=== PATIENT | female | born 1985 | race African-American/Black ===

== ENCOUNTER 2016-10-23 20:49 | Emergency (ER) | payer SELFPAY ==
[2016-10-23] MEDS ORDERED: NS 0.9% 1000 ML* 1,000 ML IV ONE (22:26)
[2016-10-23] MEDS ORDERED: Ondansetron INJ* 2 MG/ML VIAL IV ONE (22:26)
[2016-10-23] MEDS ORDERED: Morphine INJ* 2 MG/ML 1 ML SYRINGE IV ONE (22:26)
[2016-10-23 22:34] LABS: Urine Bilirubin Negative (Negative); Urine Glucose Negative (Negative); Urine Nitrite Negative (Negative)
[2016-10-23 22:43] LABS: Hematocrit 40 % (35-47); Hemoglobin 13.2 g/dl (12.0-16.0); Mean Corpuscular HGB Conc 33 g/dl (31-36); Mean Corpuscular Hemoglobin 30 pg (27-31); Mean Corpuscular Volume 91 fL (80-97); Mean Platelet Volume 8 um3 (7.4-10.4); Red Blood Count 4.38 10^6/ul (4.0-5.4); Red Cell Distribution Width 14 % (10.5-15); White Blood Count 10.6 10^3/ul (3.5-10.8)
[2016-10-23 22:59] LABS: ALT 19 U/L (7-52); AST 17 U/L (13-39); Albumin 4.4 g/dL (3.2-5.2); Alkaline Phosphatase 64 U/L (34-104); Anion Gap 7 mmol/L (2-11); BUN/Creatinine Ratio 11.6 (8-20); Blood Urea Nitrogen 10 mg/dL (6-24); C Reactive Protein 5.63 mg/L (< 5.00); CO2 Carbon Dioxide 28 mmol/L (22-32); Calcium 9.2 mg/dL (8.6-10.3); Chloride 102 mmol/L (101-111); EGFR African American 98.3 (>60); EGFR Non-African American 76.5 (>60); Globulin 3.2 g/dL (2-4); Glucose 97 mg/dL (70-100); Lipase 26 U/L (11.0-82.0); Magnesium 1.7 mg/dL (1.9-2.7); Potassium 3.7 mmol/L (3.5-5.0); Sodium 137 mmol/L (133-145); Total Protein 7.6 g/dL (6.4-8.9)
[2016-10-24] MEDS ORDERED: Morphine INJ* 2 MG/ML 1 ML SYRINGE ONE (00:02)
[2016-10-24] MEDS ORDERED: Morphine INJ* 2 MG/ML 1 ML SYRINGE IV ONE (00:03)
--- NOTE | 2016-10-24 00:03 | ED ---
allen Rondon Timothy, scribed for Douglas Mccall MD on 10/23/16 at 2229 . Abdominal Pain/Female - HPI Summary HPI Summary: Oneida Mendoza is a 31 yo female presenting to [facility] with constant 10/ 10 lower abd pain with nausea and lightheadedness since 1500 today. she states she was at rest when the pain started. She denies V/D, dysuria, and fever. she has self-medicated with tylenol. Her MHx includes ectopic and C- section. - History of Current Complaint Chief Complaint: EDAbdPain Stated Complaint: LOWER ABD PAIN Time Seen by Provider: 10/23/16 22:23 Hx Obtained From: Patient Onset/Duration: Sudden Onset, Lasting Hours, Still Present Timing: Constant Severity Initially: Moderate Severity Currently: Moderate Pain Intensity: 10 Pain Scale Used: 0-10 Numeric Location: Discrete At: RLQ, Discrete At: LLQ Radiates: No Associated Signs and Symptoms: Positive: Nausea. Negative: Fever, Urinary Symptoms, Vomiting Allergies/Adverse Reactions: Allergies Allergy/AdvReac Type Severity Reaction Status Date / Time No Known Allergies Allergy Verified 10/23/16 20:55 PMH/Surg Hx/FS Hx/Imm Hx - Surgical History Surgery Procedure, Year, and Place: Infectious Disease History: Denies: Traveled Outside the [place] in Last 30 Days - Family History Known Family History: Positive: Diabetes Negative: Cardiac Disease - Social History Occupation: Employed Full-time Lives: With Family Alcohol Use: Rare Hx Substance Use: No Hx Tobacco Use: No Smoking Status (MU): Never Smoked Tobacco - Additional Comments History Additional Comments: ectopic Review of Systems Constitutional: Negative Negative: Fever Eyes: Negative ENT: Negative Cardiovascular: Negative Respiratory: Negative Positive: Abdominal Pain, Nausea. Negative: Vomiting Genitourinary: Negative Positive: no symptoms reported Musculoskeletal: Negative Skin: Negative Neurological: Other - lightheadedness Psychological: Normal All Other Systems Reviewed And Are Negative: Yes Physical Exam Triage Information Reviewed: Yes Vital Signs On Initial Exam: Initial Vitals Temp Pulse Resp BP Pulse Ox 97.7 F 93 16 146/97 100 10/23/16 20:50 10/23/16 20:50 10/23/16 20:50 10/23/16 20:50 10/23/16 20:50 Vital Signs Reviewed: Yes Appearance: Positive: Well-Appearing, Pain Distress - mild discomfort Skin: Positive: Warm Head/Face: Positive: Normal Head/Face Inspection Eyes: Positive: NACHO ENT: Positive: Hearing grossly normal Respiratory/Lung Sounds: Positive: Breath Sounds Present Cardiovascular: Positive: RRR Abdomen Description: Positive: Soft - mild diffuse lower abd tenderness. Negative: Distended, Guarding Bowel Sounds: Positive: Present Musculoskeletal: Positive: Strength/ROM Intact Neurological: Positive: Alert, Oriented to Person Place, Time Diagnostics - Vital Signs Vital Signs Temp Pulse Resp BP Pulse Ox 10/23/16 20:50 97.7 F 93 16 146/97 100 - Laboratory Lab Results: Lab Results 10/23/16 10/23/16 10/23/16 Range/Units 21:10 22:35 22:35 WBC 10.6 (3.5-10.8) 10^3/ul RBC 4.38 (4.0-5.4) 10^6/ul Hgb 13.2 (12.0-16.0) g/dl Hct 40 (35-47) % MCV 91 (80-97) fL MCH 30 (27-31) pg MCHC 33 (31-36) g/dl RDW 14 (10.5-15) % Plt Count 228 (150-450) 10^3/ul MPV 8 (7.4-10.4) um3 Neut % (Auto) 83.8 H (38-83) % Lymph % (Auto) 10.6 L (25-47) % Ev[place]eline % (Auto) 5.2 (1-9) % Eos % (Auto) 0.2 (0-6) % Baso % (Auto) 0.2 (0-2) % Absolute Neuts (auto) 8.8 H (1.5-7.7) 10^3/ul Absolute Lymphs (auto) 1.1 (1.0-4.8) 10^3/ul Absolute Monos (auto) 0.5 (0-0.8) 10^3/ul Absolute Eos (auto) 0 (0-0.6) 10^3/ul Absolute Basos (auto) 0 (0-0.2) 10^3/ul Absolute Nucleated RBC 0.01 10^3/ul Nucleated RBC % 0.1 Sodium 137 (133-145) mmol/L Potassium 3.7 (3.5-5.0) mmol/L Chloride 102 (101-111) mmol/L Carbon Dioxide 28 (22-32) mmol/L Anion Gap 7 (2-11) mmol/L BUN 10 (6-24) mg/dL Creatinine 0.86 (0.51-0.95) mg/dL Est GFR ( Amer) 98.3 (>60) Est GFR (Non-Af Amer) 76.5 (>60) BUN/Creatinine Ratio 11.6 (8-20) Glucose 97 (70-100) mg/dL Lactic Acid (0.5-2.0) mmol/L Calcium 9.2 (8.6-10.3) mg/dL Magnesium 1.7 L (1.9-2.7) mg/dL Total Bilirubin 0.70 (0.2-1.0) mg/dL AST 17 (13-39) U/L ALT 19 (7-52) U/L Alkaline Phosphatase 64 (34-104) U/L C-Reactive Protein 5.63 H (< 5.00) mg/L Total Protein 7.6 (6.4-8.9) g/dL Albumin 4.4 (3.2-5.2) g/dL Globulin 3.2 (2-4) g/dL Albumin/Globulin Ratio 1.4 (1-3) Lipase 26 (11.0-82.0) U/L Beta HCG, Quant < 0.60 mIU/mL Urine Color Straw Urine Appearance Clear Urine pH 8.0 (5-9) Ur Specific [place] 1.008 L (1.010-1.030) Urine Protein Negative (Negative) Urine Ketones Negative (Negative) Urine Blood Negative (Negative) Urine Nitrate Negative (Negative) Urine Bilirubin Negative (Negative) Urine Urobilinogen Negative (Negative) Ur Leukocyte Esterase Negative (Negative) Urine Glucose Negative (Negative) 10/23/16 Range/Units 22:35 WBC (3.5-10.8) 10^3/ul RBC (4.0-5.4) 10^6/ul Hgb (12.0-16.0) g/dl Hct (35-47) % MCV (80-97) fL MCH (27-31) pg MCHC (31-36) g/dl RDW (10.5-15) % Plt Count (150-450) 10^3/ul MPV (7.4-10.4) um3 Neut % (Auto) (38-83) % Lymph % (Auto) (25-47) % Evangeline % (Auto) (1-9) % Eos % (Auto) (0-6) % Baso % (Auto) (0-2) % Absolute Neuts (auto) (1.5-7.7) 10^3/ul Absolute Lymphs (auto) (1.0-4.8) 10^3/ul Absolute Monos (auto) (0-0.8) 10^3/ul Absolute Eos (auto) (0-0.6) 10^3/ul Absolute Basos (auto) (0-0.2) 10^3/ul Absolute Nucleated RBC 10^3/ul Nucleated RBC % Sodium (133-145) mmol/L Potassium (3.5-5.0) mmol/L Chloride (101-111) mmol/L Carbon Dioxide (22-32) mmol/L Anion Gap (2-11) mmol/L BUN (6-24) mg/dL Creatinine (0.51-0.95) mg/dL Est GFR ( Amer) (>60) Est GFR (Non-Af Amer) (>60) BUN/Creatinine Ratio (8-20) Glucose (70-100) mg/dL Lactic Acid 1.1 (0.5-2.0) mmol/L Calcium (8.6-10.3) mg/dL Magnesium (1.9-2.7) mg/dL Total Bilirubin (0.2-1.0) mg/dL AST (13-39) U/L ALT (7-52) U/L Alkaline Phosphatase (34-104) U/L C-Reactive Protein (< 5.00) mg/L Total Protein (6.4-8.9) g/dL Albumin (3.2-5.2) g/dL Globulin (2-4) g/dL Albumin/Globulin Ratio (1-3) Lipase (11.0-82.0) U/L Beta HCG, Quant mIU/mL Urine Color Urine Appearance Urine pH (5-9) Ur Specific [place] (1.010-1.030) Urine Protein (Negative) Urine Ketones (Negative) Urine Blood (Negative) Urine Nitrate (Negative) Urine Bilirubin (Negative) Urine Urobilinogen (Negative) Ur Leukocyte Esterase (Negative) Urine Glucose (Negative) Result Diagrams: 10/23/16 22:35 10/23/16 22:35 Lab Statement: Any lab studies that have been ordered have been reviewed, and results considered in the medical decision making process. - CT A/P CT Interpretation: Positive (See Comments) - 4cm cyst in right adnexa. Fluid in the right adnexa and cul-de-sac, nonspecific typically the result of a cyst rupture. Re-Evaluation - Re-Evaluation First Eval Re-Evaluation Time: 02:34 Change: Improved Comment: Discussed lab and imaging results with Pt, she is agreeable to be discharged. Abdominal Pain Fem Course/Dx - Course Course Of Treatment: Oneida Mendoza is a 31 yo female presenting to [facility] with suuden-onset 10/10 lower abd pain with nausea and lightheadedness since 1500 today. In the ED course she received zofran for nausea control, morphine for pain management, and IV fluids. Her CT A/P suggests 4cm cyst in the right adnexa. After clinical examination and review of her lab and imaging studies, she will be discharge home with right ovarian cyst with appropriate instructions. - Diagnoses Provider Diagnoses: Right ovarian cyst Discharge - Discharge Plan Condition: Stable Disposition: HOME Prescriptions: Naproxen TAB* [Naprosyn 250 mg TAB*] 500 mg PO BID #20 tab Patient Education Materials: Ovarian Cyst (ED) Referrals: Non Staff,Doctor [Primary Care Provider] - 2 Days Additional Instructions: Please follow up with your primary care physician regarding your visit to the emergency department today. Return to the emergency department with any new or recurring symptoms The documentation as recorded by the allen carrillo Timothy accurately reflects the service I personally performed and the decisions made by me, Douglas Mccall MD.
[2016-10-24] MEDS ORDERED: Iohexol 300* (CONTRAST) 10 ML SDV IV ONE (01:21)
[2016-10-24 03:16] VITALS: BP 126/83
--- NOTE | 2016-10-24 07:53 | RAD ---
CLINICAL HISTORY: Lower abdominal pain COMPARISON: None TECHNIQUE: Multiple contiguous axial CT scans were obtained of the abdomen and pelvis after the administration of intravenous contrast. Coronal and sagittal multiplanar reformations are submitted for review. Oral contrast was administered. Delayed images were obtained through the abdomen and pelvis. FINDINGS: Evaluation is limited by positioning. The spleen and superior portions stomach are not completely included within the [id number] the submitted images LUNG BASES: The lung bases are clear. LIVER: The liver is normal in shape, size, contour, and attenuation. BILE DUCTS: There is no intrahepatic or extrahepatic biliary dilatation. GALLBLADDER: Multiple gallstones are noted. There is no pericholecystic inflammatory change. PANCREAS: The pancreas is normal, without mass or ductal dilatation. SPLEEN: The visualized portion of the spleen is normal. UPPER GI TRACT: Evaluation of the gastrointestinal tract is limited by incomplete gastric distention. The visualized portion of the upper GI tract is normal SMALL BOWEL AND MESENTERY: The small bowel is normal in contour, course, and caliber. There is no obstruction or dilatation. COLON: The colon is normal in contour, course, caliber. There is no pericolonic inflammatory change. There is a tubular, vermiform, hollow viscus that is blind ending, and originates from the cecum, consistent with a normal appendix. There is no periappendiceal inflammatory change. This is best seen on axial images 101 through 127 ADRENALS: Normal bilaterally. KIDNEYS: The kidneys are normal in shape, size, contour, and axis. There is no hydronephrosis or nephrolithiasis. BLADDER: The bladder is smooth in contour. PELVIC ORGANS: There is a 4 cm cyst of the right ovary measuring simple fluid in attenuation. AORTA: The aorta is normal. IVC: Unremarkable LYMPH NODES: There is no lymphadenopathy by size criteria. ABDOMINAL WALL: There is no evidence for abdominal wall hernia. BONES AND SOFT TISSUES: The bones and soft tissues are unremarkable. OTHER: There is a small amount of simple fluid within the pelvic cul-de-sac IMPRESSION: 4 CM CYST OF THE RIGHT OVARY WITH A SMALL AMOUNT OF FLUID WITHIN THE PELVIC CUL-DE-SAC.
== END 2016-10-24 03:15 | disposition home or self-care (01) ==
LOC: ED 20:49
DX: N83.201 Unspecified ovarian cyst, right side (principal)
CPT/HCPCS: 36415; 74177; 80053; 81003; 83605; 83690; 83735; 84702; 85025; 86140; 96374; 96375; 99283; J2270; J2405; Q9967